=== PATIENT | male | born 1980 | race Caucasian/White ===

== ENCOUNTER → 2016-10-07 | Outpatient (CLI) | payer BC ==
--- NOTE | 2016-10-07 14:35 | DIAGNOSTIC IMAGING REPORT ---
HEAD CT NONCONTRAST CT DOSE: 638.84 mGy.cm HISTORY: Mental status change headaches TECHNIQUE: Multiaxial CT images of the head were performed without the use of intravenous contrast. Comparison: None. Findings: The paranasal sinuses and mastoid air cells are clear. The calvarium and skull base are intact. The ventricles and sulci are within normal limits. There is no mass, hematoma, midline shift, or acute infarct. Impression: No acute intracranial abnormality. Electronically signed by: Logan Daugherty M.D. 10/07/2016 2:33 PM Dictated Date/Time: 10/07/2016 2:33 PM
== END | disposition home or self-care (01) ==
LOC: C.CTS 14:08
PROVIDERS: ATTEND Family Medicine
DX: R51 Headache (principal)